=== PATIENT | male | born 1995 | race Caucasian/White ===

== ENCOUNTER 2025-09-29 19:31 | Emergency (ER) | payer OTHER ==
[~2025-09-29] VITALS: Ht 182.9 cm; Wt 90.7 kg
== END 2025-09-29 20:26 | disposition home or self-care (01) ==
LOC: ER 19:31
DX: S80.861A Insect bite (nonvenomous), right lower leg, initial encounter (principal); Z59.89 Other problems related to housing and economic circumstances; W57.XXXA Bitten or stung by nonvenomous insect and other nonvenomous arthropods, initial encounter
CPT/HCPCS: 99282; A9270

== ENCOUNTER 2025-10-08 08:22 | Emergency (ER) | payer OTHER ==
[~2025-10-08] VITALS: Ht 182.9 cm; Wt 90.7 kg
[2025-10-08] MEDS ORDERED: Triamcinolone Inj Susp 40 MG / ML 1ML Vial IM ONE (08:35)
== END 2025-10-08 10:10 | disposition home or self-care (01) ==
LOC: ER 08:22
DX: L23.7 Allergic contact dermatitis due to plants, except food (principal)
CPT/HCPCS: 96372; 99282-25; J3301